=== PATIENT | female | born 1990 | race Caucasian/White ===

== ENCOUNTER → 2025-02-24 | Outpatient (CLI) | payer MEDICAID, SELFPAY ==
--- NOTE | 2025-02-24 15:00 | XR_ITS ---
Examination: CT abdomen and pelvis without contrast. Coronal 3-D reconstructions. Sagittal 2-D reconstructions. Date and time of exam:February 24, 2025 1504 hours INDICATIONS: Flank pain months CTDI: vol (mGy): 6.16 DLP: (mGycm): 328 Technique: Axial images of the abdomen have been obtained, 3 mm slice thickness Intravenous contrast material has not been administered. Low dose protocols were performed. One or more of the following dose reduction techniques were used; automated exposure control, adjustment of the mA and/or KV according to patient size, use of iterative reconstruction technique. Findings: No focal liver or splenic lesions Contracted gallbladder No pancreatic mass Multiple 1 to 2 mm left renal calculi Moderate right hydronephrosis secondary to 7 mm distal right ureteral calculus No bowel obstruction Normal appendix No pelvic mass No bladder mass IMPRESSION: Moderate right hydronephrosis secondary to 7 mm distal right ureteral calculus
== END | disposition home or self-care (01) ==
LOC: CCTX 14:42
PROVIDERS: PCP Physician Assistant Medical; Referring Provider Physician Assistant Medical; Visit Provider Physician Assistant Medical
DX: N13.30 Unspecified hydronephrosis (principal); N20.1 Calculus of ureter
CPT/HCPCS: 74176

== ENCOUNTER 2025-05-19 13:21 | Emergency (ER) | payer MEDICAID, SELFPAY ==
[2025-05-19 13:22] VITALS: BMI 20.2
[2025-05-19 13:29] VITALS: BP 128/84; PULSE 88; RESP 20; TEMP 36.8; O2SAT 99
--- NOTE | 2025-05-19 13:33 | XR_ITS ---
Examination: CT abdomen and pelvis without contrast. Coronal 3-D reconstructions. Sagittal 2-D reconstructions. Date and time of exam: 05/19/2025 at 4:03 p.m. INDICATION: Right-sided flank pain. COMPARISON: CT abdomen pelvis 02/24/2025. CTDI: vol (mGy): 6.78 DLP: (mGycm): 340 Technique: Axial images of the abdomen have been obtained, 3 mm slice thickness Intravenous contrast material has not been administered. Low dose protocols were performed. One or more of the following dose reduction techniques were used; automated exposure control, adjustment of the mA and/or KV according to patient size, use of iterative reconstruction technique. Findings: Lack of intravenous contrast limits evaluation of solid organs, vasculature, and lymph nodes. Lower thorax: No pleural effusions. No airspace consolidation. Heart size is within normal limits. Liver: No significant hepatic enlargement. No gross liver mass. Biliary system: No calcified gallstones or findings concerning for acute cholecystitis or biliary ductal obstruction. Spleen: Within normal limits of size. No discrete mass. Pancreas: No contour deforming mass or overt main pancreatic duct dilatation. No evidence for acute inflammation. Adrenal glands: No significant findings. Kidneys: Redemonstration of severe right-sided hydroureteronephrosis that is progressive compared to the prior CT. The right renal pelvis now measures approximate 4.2 cm wide on coronal image 54), previously 3.5 cm wide on coronal image [address] There is a large obstructing calculus in the distal pelvic portion of the right ureter, only slightly advanced in the interim and mildly rotated since prior exam, currently measuring 9 x 7 mm in transaxial dimensions (axial image 184). Mild edematous fat stranding is present adjacent to the dilated renal pelvis and to a slight degree along the lateral cortex of the right kidney. There is redemonstration of punctate left renal calculi in similar position and size, with otherwise no evidence for obstructing ureteral calculus. No contour-deforming solid mass on either side. Bladder: Very limited assessment due to under distention but no calculus is seen. Pelvic organs: No masses or acute findings. Ovarian follicles noted, left side greater than right. Anteverted uterus. Bowel/Peritoneal cavity: Limited assessment without IV and oral contrast as well as segments of underdistention. No contour deforming mass. No obstructive or acute inflammatory changes. The appendix is normal. Minimal free fluid in the cul-de-sac. Lymph nodes/retroperitoneum: No pathologically enlarged lymph nodes or other masses. No hematoma or other abnormal collections. Vessels: Normal caliber abdominal aorta. 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 Abdominal/Pelvic wall: No significant hernia or abnormal collection. Musculoskeletal: No recent fractures or tumor suspicious lytic or blastic lesions. Mild convex left spinal curvature. IMPRESSION: Redemonstration of severe right-sided hydroureteronephrosis that is progressive compared to the prior CT. Large obstructing calculus is reidentified in the distal pelvic portion of the right ureter, only slightly advanced in the interim and mildly rotated since prior exam, currently measuring 9 x 7 mm in transaxial dimensions. Mild edematous fat stranding is present adjacent to the dilated renal pelvis and to a slight degree along the lateral cortex of the right kidney. Normal free fluid in the cul-de-sac. Stable punctate nonobstructing left renal calculi. Normal appendix.
[2025-05-19 14:00] LABS: Collection Type, Urine Clean Catch
[2025-05-19] MEDS: KETOROLAC INJ 30 MG/ML VIAL IM (14:09)
[2025-05-19] MEDS: ONDANSETRON ODT 4 MG TABRAP PO (14:11)
[2025-05-19 14:13] LABS: Bilirubin,Urine Negative (Negative); Blood,Urine 1+ (Negative); Clarity,Urine Clear (Clear/Hazy); Color,Urine Yellow (Lt Yel-Yel); Culture Indicated,Urine Not Indicated; Glucose, Urine Negative (Negative); Ketones,Urine Negative (Negative); Leukocyte Esterase,Urine Negative (Negative); Nitrite,Urine Negative (Negative); PH,Urine 5.5 (5.0-7.0); Protein,Urine Trace (Neg - Trace); RBC,Urine 22 /hpf (0-3); Specific Gravity,Urine 1.027 (1.001-1.035); Squamous Epithelial Cell,Urine 14 /hpf (0-5); Urobilinogen,Urine Negative mg/dL (0.0-1.0); WBC,Urine 3 /hpf (0-5)
--- NOTE | 2025-05-19 14:13 | PD.EDRME ---
Rapid Medical Screening Exam RME Arrival date/time: 05/19/25 13:21 34-year-old female with history of kidney stone presents emerged from today for complaint of right flank pain patient reports he is scheduled of surgery next Friday with Dr. Dash Chief Complaint: Urogenital-Female Vital signs: Vital Signs Temperature 98.3 F 05/19/25 13:29 Pulse Rate 88 05/19/25 13:29 Respiratory Rate 20 05/19/25 13:29 Blood Pressure 128/84 05/19/25 13:29 Pulse Oximetry (%) 99 05/19/25 13:29 Oxygen Delivery Method Room Air 05/19/25 13:29 Vital signs reviewed by provider: Yes Exam: On exam patient has tenderness and pain right flank region Clinical Impression: Lab work imaging ordered pain meds ordered
[2025-05-19] MEDS: METOCLOPRAMIDE INJ 5 MG/ML VIAL 2 ML 10 MG IM (14:18)
[2025-05-19 14:42] LABS: Basophils # (Auto) 0.0 Thou/mm3 (0.0-0.2); Basophils % (Auto) 0 % (0-2.5); Eosinophils # (Auto) 0.2 Thou/mm3 (0.0-0.5); Eosinophils % (Auto) 2 % (0-10); Hematocrit 39.2 % (36.0-46.0); Hemoglobin 13.0 g/dL (12.0-16.0); Immature Granulocytes Auto 0.02 Thou/mm3 (0.00-0.00); Lymphocytes # (Auto) 2.9 Thou/mm3 (1.0-4.8); Lymphocytes % (Auto) 31 % (10-50); Mean Corpuscular HGB Conc 33.2 g/dl (31.0-37.0); Mean Corpuscular Hemoglobin 28.4 pg (25.0-35.0); Mean Corpuscular Volume 86 fL (80-100); Monocytes # (Auto) 0.9 Thou/mm3 (0.0-0.8); Monocytes % (Auto) 9 % (0-12); Neutrophils # (Auto) 5.5 Thou/mm3 (1.8-7.7); Neutrophils % (Auto) 57 % (37-80); Nucleated Red Blood Cell # 0.00 Thou/mm3 (0.00-0.00); Nucleated Red Blood Cell % 0 /100 WBC (0); Platelet Count 310 Thou/mm3 (140-440); RDW Standard Deviation 39.9 fL (36.4-46.3); Red Blood Count 4.57 Miln/mm3 (4.00-5.20); White Blood Count 9.6 Thou/mm3 (3.6-11.0)
[2025-05-19 14:55] LABS: HCG,Qualitative Serum Negative
[2025-05-19 15:00] LABS: Alanine Aminotransferase 12 U/L (10-49); Albumin, Serum 4.8 gm/dL (3.5-5.0); Albumin/Globulin Ratio 2.3 (1.2-2.2); Alkaline Phosphatase 57 U/L (46-116); Anion Gap 9 (7-16); Aspartate Amino Transferase 20 U/L (0-34); BUN/Creatinine Ratio 18 Ratio (12-20); Bilirubin,Total 0.5 mg/dL (0.3-1.2); Blood Urea Nitrogen 18 mg/dL (9-23); Calcium 9.6 mg/dL (8.3-10.6); Calcium (Corrected) 9.6 mg/dL (8.5-10.1); Carbon Dioxide 24.6 mMol/L (20.0-31.0); Chloride 105 mMol/L (98-107); Creatinine (Component) 1.0 mg/dL (0.6-1.3); Estimated Creatinine Clearance 69.2 mL/min (>60); Globulin 2.1 gm/dL (2.3-3.5); Glucose 88 mg/dL (74-106); Lipase 36 U/L (12-53); Osmolality,Calculated 278 (275-295); Potassium 4.2 mMol/L (3.4-5.1); Sodium 139 mMol/L (136-145); Total Protein 6.9 gm/dL (5.7-8.2); eGFR > 60 See Note
--- NOTE | 2025-05-19 17:37 | PD.EDFMALE ---
ED Female Urogenital RME/HPI General Chief complaint: Urogenital-Female Stated complaint: RIGHT KIDNEY STONE PAIN, AWAITING SURGERY Time Seen by Provider: 05/19/25 16:45 Arrival date/time: 05/19/25 13:21 34-year-old female patient with a history of renal stone in the past, came in for evaluation regarding right flank pain. Onset of symptoms since early this morning as sudden onset of right flank pain, associated with nausea. No vomiting noted no fever noted no dysuria no frequency no hematuria. Patient was sent to us by Dr. GARCIA, urologist. RME / HPI RME / HPI Narrative: 05/19/25 13:21 34-year-old female with history of kidney stone presents emerged from today for complaint of right flank pain patient reports he is scheduled of surgery next Friday with Dr. Dash Exam: On exam patient has tenderness and pain right flank region Impression: Lab work imaging ordered pain meds ordered Related Data Previous Rx's ?Medication ?Instructions ?Recorded ciprofloxacin HCl 500 mg tablet 500 mg PO BID #14 tabs 05/19/25 (Cipro) famotidine 20 mg tablet (Pepcid) 20 mg PO BID #20 tabs 05/19/25 ketorolac 10 mg tablet 10 mg PO TID PRN pain #20 tabs 05/19/25 ondansetron HCl 4 mg tablet 4 mg PO TID PRN nausea and 05/19/25 vomiting 5 days #20 tabs Allergies Allergy/AdvReac Type Severity Reaction Status Date / Time No Known Allergies Allergy Verified 05/19/25 13:23 Review of Systems Review of Systems Narrative Review of Systems: Review of system reviewed and within normal limits except mentioned in HPI ED Exam Narrative Physical exam: VITAL SIGNS: Reviewed. GENERAL APPEARANCE: Alert and interactive, follows commands, no acute distress, HEAD AND FACE: Non-traumatic. ENT: PERRL, pink conjunctivitis, eyelid no trauma, Mucous membrane moist. NECK: Supple, nontender, no nuchal rigidity. ABDOMEN: Soft, positive bowel sounds, nondistended, no guarding, nontender, no rebound, no masses, right flank tenderness RECTAL: Deferred. GENITAL: Deferred. NEUROLOGICAL: Gross motor function intact sensory function intact, Appropriate for age. MUSCULOSKELETAL: low back nontender, full range of motion. EXTREMITIES: Nontender, full range of motion. SKIN: Color pink, dry, no rash, no lacerations, no abrasions, no contusions. LYMPHATICS: Deferred. Course Quality Measures none Orders Category Date Time Status CT abdomen pelvis wo con Stat Exams 05/19/25 13:33 Completed CBC Stat Lab 05/19/25 14:08 Completed Comprehensive Metabolic Panel Stat Lab 05/19/25 14:08 Completed HCG,Qualitative Serum Stat Lab 05/19/25 14:08 Completed Lipase Stat Lab 05/19/25 14:08 Completed UA, C/S IF [Urinalysis, C/S if Indicated] Stat Lab 05/19/25 13:55 Completed Ciprofloxacin HCl [Ciprofloxacin] Med 05/19/25 17:27 Discontinued 500 mg PO X1 ONE Ketorolac Inj [Toradol Inj] Med 05/19/25 13:33 Discontinued 30 mg IM X1 ONE Metoclopramide Inj [Reglan Inj] Med 05/19/25 14:07 Discontinued 10 mg IM X1 ONE Morphine* Inj Med 05/19/25 17:27 Discontinued 4 mg IM X1 ONE Ondansetron Odt [Zofran Odt] Med 05/19/25 13:33 Discontinued 4 mg PO X1 ONE Vital Signs Vital signs: Vital Signs Temperature 98.3 F 05/19/25 13:29 Pulse Rate 88 05/19/25 13:29 Respiratory Rate 20 05/19/25 13:29 Blood Pressure 128/84 05/19/25 13:29 Pulse Oximetry (%) 99 05/19/25 13:29 Oxygen Delivery Method Room Air 05/19/25 13:29 Urogenital - Female MDM Narrative MDM Narrative:: 34-year-old female patient with a history of renal stone in the past, came in for evaluation regarding right flank pain. Onset of symptoms since early this morning as sudden onset of right flank pain, associated with nausea. No vomiting noted no fever noted no dysuria no frequency no hematuria. Patient was sent to us by Dr. GARCIA, urologist. Patient's workup today came back unremarkable creatinine is normal urinalysis no UTI. CT scan of the abdomen and pelvis showed Redemonstration of severe right-sided hydroureteronephrosis that is progressive compared to the prior CT. Large obstructing calculus is reidentified in the distal pelvic portion of the right ureter, only slightly advanced in the interim and mildly rotated since prior exam, currently measuring 9 x 7 mm in transaxial dimensions. Mild edematous fat stranding is present adjacent to the dilated renal pelvis and to a slight degree along the lateral cortex of the right kidney. Normal free fluid in the cul-de-sac. Stable punctate nonobstructing left renal calculi. Normal appendix. Patient was given Reglan Zofran and Toradol with almost complete resolution of symptoms I added morphine IM. Case discussed with patient's urologist, Dr. St discussed the case, told me that patient can be discharged and follow-up in the clinic this coming Friday at 2 PM Stable for discharge home Patient data External records reviewed:: None Clinical information provided by:: patient Social determinants that could affect healthcare access:: none Patient has the following chronic illnesses:: History of kidney stone in the past How is presenting disease/condition affected by chronic disease/condition?: exacerbated by Evaluation data The following diagnostics were reviewed and interpreted by me:: lab results and radiology exam(s) Lab and/or radiology exams considered but not ordered:: None Interpretation Summary: See MDM Medications / Prescriptions Medications or Prescriptions considered but not ordered:: None Medication administrations:: Medication Administration History Discontinued Medications Ciprofloxacin (Ciprofloxacin Hcl 250 Mg Tablet) 500 mg PO X1 ONE Stop: 05/19/25 17:28 Ketorolac Tromethamine (Ketorolac Inj 30 Mg/Ml Vial) 30 mg IM X1 ONE Stop: 05/19/25 13:34 Last Admin: 05/19/25 14:09 Dose: 30 mg Documented By: Metoclopramide HCl (Metoclopramide Inj 5 Mg/Ml Vial 2 Ml) 10 mg IM X1 ONE; Protocol Stop: 05/19/25 14:08 Last Admin: 05/19/25 14:18 Dose: 10 mg Documented By: Morphine Sulfate (Morphine Sulf Inj 4 Mg/Ml Vial) 4 mg IM X1 ONE Stop: 05/19/25 17:28 Ondansetron HCl (Ondansetron Odt 4 Mg Tabrap) 4 mg PO X1 ONE; Protocol Stop: 05/19/25 13:34 Last Admin: 05/19/25 14:11 Dose: 4 mg Documented By: See MDM Consultations Consultation(s) initiated? (list below): Yes Consultation #1 (Physician, Specialty, Details): Dr Carreno, urologist, discussed the case, thank you DrNazia Diagnosis Urogenital Female Differential Diagnosis: urinary tract infection and other (Renal colic, ureterolithiasis) Most likely diagnosis given after review of the tests above:: Renal colic ureterolithiasis Admission Indicated Admission indicated?: not indicated Admission Request Was there a request for admission?: No Disposition Plan Disposition Plan: Discharge Discharge Attestation Discharge Attestation: The patient and all family members were given an opportunity to ask questions and understood the discharge instructions. Discharge instructions specifically effects, indications for sooner follow up or return to the emergency department, and the expected course of current diagnosis. Patient condition: Stable Discharge Plan Plan Patient Disposition: HOME (Self Care) Discharge Disposition comment: Stable Prescriptions/Referrals Prescriptions/Med Rec: New ciprofloxacin HCl [Cipro] 500 mg tablet 500 mg PO BID Qty: 14 0RF ondansetron HCl 4 mg tablet 4 mg PO TID PRN (Reason: nausea and vomiting) 5 Days Qty: 20 0RF ketorolac 10 mg tablet 10 mg PO TID PRN (Reason: pain) Qty: 20 0RF Rx Instructions: maximum total duration of 5 days from all oral, intranasal, or parenteral formulations famotidine [Pepcid] 20 mg tablet 20 mg PO BID Qty: 20 0RF Referrals: Marleen Mueller PA-C [Primary Care Provider] - In 1 week Problem List Clinical Impression: Renal colic, Ureterolithiasis Patient/Caregiver Discharge Instructions Discharge Activity: activity as tolerated Education Materials: Treating Kidney Stones ... Additional Instructions: Thank you for the opportunity for serving you today. You are stable for discharged . You are advised to: Follow-up with your urologist, Friday, at 2 PM please proceed to the clinic Return to ED for worsening of symptoms Increase oral fluids Take medication as prescribed Print Language: [place] Stand Alone Forms: [employer] Award Info., Patient Portal Info Letter MICAH/[place] Supervising Physician TANESHA Supervising Physician: MD Mary
[2025-05-19] MEDS: MORPHINE SULF INJ 4 MG/ML VIAL IM (17:52)
[2025-05-19] MEDS: CIPROFLOXACIN HCL 250 MG TABLET 500 MG PO (17:53)
== END 2025-05-19 18:03 | disposition home or self-care (01) ==
PROVIDERS: Nurse Practitioner Primary Care; Emergency Provider Nurse Practitioner Family; PCP Physician Assistant Medical
DX: N20.2 Calculus of kidney with calculus of ureter (principal)
CPT/HCPCS: 36415; 74176; 80053; 81001; 83690; 84703; 85025; 96372; 99283; J1885; J2270; J2765; Q0162; A9270